=== PATIENT | female | born 1945 | race Caucasian/White ===

== ENCOUNTER 2017-04-18 10:58 | Day surgery (SDC) | payer MEDICARE ==
[2017-04-13 09:21] LABS: HEMATOCRIT 41.5 % (36.0-47.0); HGB HCT DIFFERENCE 0.5; MEAN CORPUSCULAR HEMOGLOBIN 29.7 pg (27.0-33.4); MEAN CORPUSCULAR HGB CONC 33.8 g/dL (32.0-36.0); MEAN CORPUSCULAR VOLUME 88 fl (80-97); RED BLOOD COUNT 4.73 10^6/uL (3.72-5.28); RED CELL DISTRIBUTION WIDTH 13.8 % (11.5-14.0); WHITE BLOOD COUNT 8.7 10^3/uL (4.0-10.5)
[2017-04-13 10:29] LABS: BLOOD UREA NITROGEN 11 mg/dL (7-20); CALCIUM 9.5 mg/dL (8.4-10.2); CREATININE RESULT 0.87 mg/dL (0.52-1.25); GLUCOSE 95 mg/dL (75-110)
[2017-04-13 11:23] LABS: ANION GAP 11 (5-19); CARBON DIOXIDE 32 mmol/L (22-30); CHLORIDE 99 mmol/L (98-107); POTASSIUM 4.2 mmol/L (3.6-5.0)
--- NOTE | 2017-04-13 12:19 | RADIOLOGY REPORT (SQ) ---
EXAM DESCRIPTION: CHEST PA/LATERAL COMPLETED DATE/TIME: 04/13/2017 9:41 am REASON FOR STUDY: PRE OP COMPARISON: 09/26/2013 EXAM PARAMETERS: NUMBER OF VIEWS: two views TECHNIQUE: Digital Frontal and Lateral radiographic views of the chest acquired. RADIATION DOSE: NA LIMITATIONS: none FINDINGS: LUNGS AND PLEURA: No infiltrate or effusion. A 4 cm mass is projected over the left upper lobe. This is not seen on the lateral view, however comments this may be associated with the chest wall. MEDIASTINUM AND HILAR STRUCTURES: No masses or contour abnormalities. HEART AND VASCULAR STRUCTURES: Heart normal size. No evidence for failure. BONES: No acute findings. HARDWARE: Sternotomy wires. OTHER: No other significant finding. IMPRESSION: 1. No acute infiltrates are present. 2. There is a 4 cm mass on the left. This is not appreciated on the lateral view, so this may be as sociated with the chest wall. TECHNICAL DOCUMENTATION: JOB ID: [id number] [employer]- All Rights Reserved
--- NOTE | 2017-04-14 11:52 | EKG REPORT ---
SEVERITY:- BORDERLINE ECG - SINUS RHYTHM PROBABLE LEFT ATRIAL ABNORMALITY : Confirmed by: Andrea Maravilla 14-Apr-2017 11:52:27
[~2017-04-18 10:58] MED LIST: CIPROFLOXACIN 400 MG/D5W RTU 400 MG/200 ML RTUPB IV PRN; LACTATED RINGERS 1000 ML IV PRN; LIDOCAINE 0.5% INJ-PF (5 MG/ML) 50 ML SDV SUBCUT PRN
[2017-04-18] MEDS ORDERED: MINERAL OIL (STERILE) 10 ML VIAL ONE (13:15)
[2017-04-18] MEDS ORDERED: THROMBIN (BOVINE) TOPICAL 5000 UNIT VIAL ONE (13:15)
[2017-04-18] MEDS ORDERED: LIDOCAINE 1%/EPINEPHRINE INJ 20 ML VIAL ONE (13:15)
[2017-04-18] MEDS ORDERED: LIDOCAINE 2% INJ-PF (20 MG/ML) 10 ML AMPUL ONE (13:31)
[2017-04-18] MEDS ORDERED: FENTANYL CITRATE INJ/PF 100 MCG/2 ML AMPUL ONE (13:31)
[2017-04-18] MEDS ORDERED: MIDAZOLAM 2 MG/2 ML INJ ONE (13:31)
[2017-04-18] MEDS ORDERED: PROPOFOL INJ 200 MG/20 ML VIAL IV ONE (13:32)
[2017-04-18] MEDS ORDERED: ACETAMINOPHEN 100 ML IV ONE (13:32)
--- NOTE | 2017-04-18 14:34 | PDOC DISCHARGE SUMMARY ---
Discharge Summary (SDC) - Discharge Final Diagnosis: left chest wall lesion Date of Surgery: 04/18/17 Discharge Date: 04/18/17 Condition: Stable Treatment or Instructions: Wound care: Leave pressure dressing intact for 48 hours. Pressure dressing includes: Tape and gauze beneath tape. You may shower in 48 hours after you remove pressure dressing. Leave skin glue intact, it will fall off on its own. You may take Toradol 10mg one tablet every six hours as needed for pain. Avoid excessive use of left arm. Follow up at [facility] in two weeks. Call clinic sooner if there are questions or concerns. [facility]: [phone] Prescriptions: Ketorolac Tromethamine [Toradol 10 mg Tablet] 10 mg PO Q6HP PRN #25 tablet PRN Reason: Referrals: ALICIA GOMEZ MD [Primary Care Provider] - Discharge Diet: As Tolerated Discharge Activity: No Lifting/Push/Pulling Report the Following to Your Physician Immediately: Fever over 101 Degrees, Unusual Bleeding, Redness, Swelling, Warmth, Drainage-Foul Smelling
--- NOTE | 2017-04-18 14:38 | Operative Report ---
Operative Report DATE OF SURGERY: 04/18/17 PREOPERATIVE DIAGNOSIS: Large left chest wall lesion POSTOPERATIVE DIAGNOSIS: Name OPERATION: Complete excision of left chest wall mass SURGEON: ALEJANDRA ESTRADA 1ST PROMOTIONS INTERN: SHAHRAM WEN ANESTHESIA: LMAC TISSUE REMOVED OR ALTERED: Soft tissue mass COMPLICATIONS: None ESTIMATED BLOOD LOSS: Scant INTRAOPERATIVE FINDINGS: See below PROCEDURE: The patient was seen in the preop holding area of the left subclavian chest wall lesion was marked. The patient was then taken to the main operating room where LMAC anesthesia was induced. The left subclavian area including the skin lesion was prepped and draped sterile fashion Surgical plan surgical timeout conducted. The lesion was oriented in a diagonal fashion. We commenced by anesthetized and subcutaneous tissue with 01% lidocaine plain. The lesion was excised in its entirety, by making a full-thickness elliptical excision approximately 4 cm wide by 8 cm long extending from the left subclavicular area laterally to the subclavicular area medially. The lesion was taken off in its entirety down to the subcutaneous tissue. We did not remove fascia or muscle. The lesion was sent unmarked to pathology for final analysis Lateral and medial flaps were raised and the wound closed in layers with 2-0 Vicryl 3-0 Vicryl benzoin and Steri-Strips. Sterile bulky dressing was applied. Patient tolerated the procedure well, taken to recovery in stable condition. The physician payroll assistant, Ms. Haddad, provided assistance during this case by: Assisting with retracting tissue, instillation of local anesthesia and closure of skin incisions.
[2017-04-18] MEDS ORDERED: DIPHENHYDRAMINE HCL 50 MG/ML VIAL IV PRN (15:14)
[2017-04-18] MEDS ORDERED: ONDANSETRON HCL INJ/PF 4 MG/2 ML SDV IV PRN (15:14)
[2017-04-18] MEDS ORDERED: FENTANYL CITRATE INJ/PF 100 MCG/2 ML AMPUL IV PRN ×3 (15:14)
[2017-04-18] MEDS ORDERED: PROMETHAZINE HCL INJ 25 MG/1 ML VIAL IV PRN ×2 (15:14)
[2017-04-18] MEDS ORDERED: MEPERIDINE HCL/PF INJ 25 MG/1 ML DISP.SYRIN IV PRN (15:14)
[2017-04-18 17:02] VITALS: BP 141/73
== END 2017-04-18 16:35 | disposition home or self-care (01) ==
LOC: OROUT 10:58
PROVIDERS: ATTEND Surgery
PROC: 0HB5XZZ Excision of Chest Skin, External Approach (ICD-10-PCS; 2017-04-18)
PROC: 0HQ5XZZ Repair Chest Skin, External Approach (ICD-10-PCS; principal; 2017-04-18 13:00)
DX: C44.529 Squamous cell carcinoma of skin of other part of trunk (principal); E05.90 Thyrotoxicosis, unspecified without thyrotoxic crisis or storm; I10 Essential (primary) hypertension; F17.210 Nicotine dependence, cigarettes, uncomplicated; Z79.82 Long term (current) use of aspirin; Z79.899 Other long term (current) drug therapy; Z85.3 Personal history of malignant neoplasm of breast; Z88.5 Allergy status to narcotic agent; Z88.0 Allergy status to penicillin; Z88.8 Allergy status to other drugs, medicaments and biological substances
CPT/HCPCS: 93005; 36415 ×2; 84132; 85027; 80048; 88307 ×2; 71020; 93010; 11606; 12035; J2250; J3010; J3490 ×2; J2704; J0744; J0131; 400

== ENCOUNTER → 2017-07-11 | Outpatient (CLI) | payer MEDICARE ==
--- NOTE | 2017-07-11 16:12 | RADIOLOGY REPORT (SQ) ---
EXAM DESCRIPTION: CAROTID DOPPLER COMPLETED DATE/TIME: 07/11/2017 3:47 pm REASON FOR STUDY: BRUIT R09.89 OTH SYMPTOMS AND SIGNS INVOLVING THE CIRC AND RESP SY COMPARISON: None. TECHNIQUE: Grayscale ultrasound, Doppler velocity and spectra, and color Doppler images acquired of the extra-cranial carotid and vertebral arteries. Images stored on PACS. LIMITATIONS: None. FINDINGS: RIGHT CAROTID CCA Velocities: Within normal limits. ICA Velocities Peak systolic 0.83 m/s. End diastolic 0.2 7 m/s. Proximal ICA/CCA peak systolic ratio 1.0. Spectra normal. No significant plaque. LEFT CAROTID CCA Velocities: Within normal limits. ICA Velocities Peak systolic 0.86 m/s. End diastolic 0.30 m/s. Proximal ICA/CCA peak systolic ratio 0.9. Spectra normal. No significant plaque. VERTEBRAL ARTERIES: Antegrade flow. Normal waveforms. SUBCLAVIAN ARTERIES: No finding. OTHER: No other significant finding. IMPRESSION: NO HEMODYNAMICALLY SIGNIFICANT STENOSIS. COMMENT: Quality ID #195: Velocity criteria are extrapolated from the diameter data as defined by t he Society of Radiologists in Ultrasound Consensus Conference. Radiology 2003: 229; 340-346. TECHNICAL DOCUMENTATION: JOB ID: [id number] [employer]- All Rights Reserved
== END ==
LOC: SP 14:00
PROVIDERS: ATTEND Family Medicine
DX: R09.89 Other specified symptoms and signs involving the circulatory and respiratory systems (principal)
CPT/HCPCS: 93880

== ENCOUNTER → 2019-02-25 | Outpatient (CLI) | payer MEDICARE ==
--- NOTE | 2019-02-25 15:35 | RADIOLOGY REPORT (SQ) ---
EXAM DESCRIPTION: CAROTID DOPPLER COMPLETED DATE/TIME: 02/25/2019 2:49 pm REASON FOR STUDY: BRUIT R09.89 OTH SYMPTOMS AND SIGNS INVOLVING THE CIRC AND RESP SY E05.90 THYROT OXICOSIS, UNSP WITHOUT THYROTOXIC CRISIS OR STO COMPARISON: 07/11/2017 TECHNIQUE: Grayscale ultrasound, Doppler velocity and spectra, and color Doppler images acquired of the extra-cranial carotid and vertebral arteries. Images stored on PACS. LIMITATIONS: None. FINDINGS: RIGHT CAROTID CCA Velocities: Within normal limits. ICA Velocities Peak systolic 106 cm/s. End diastolic 32 cm/s. Proximal ICA/CCA peak systolic ratio 1.14. The small amount of plaque in the common carotid and external carotid. LEFT CAROTID CCA Velocities: Within normal limits. ICA Velocities Peak systolic 204 cm/s. End diastolic 59 cm/s. Proximal ICA/CCA peak systolic ratio 2.43. There is plaque in the ICA. 50 to 69 percent stenosis. VERTEBRAL ARTERIES: Antegrade flow. Normal waveforms. SUBCLAVIAN ARTERIES: No finding. OTHER: No other significant finding. IMPRESSION: Atherosclerotic changes with 50 to 69% stenosis of the left ICA and less than 50% stenos is on the right. COMMENT: Quality ID #195: Velocity criteria are extrapolated from the diameter data as defined by t he Society of Radiologists in Ultrasound Consensus Conference. Radiology 2003: 229; 340-346. TECHNICAL DOCUMENTATION: JOB ID: [id number] [employer] All Rights Reserved Reading location - IP/workstation name: [email or web address]
--- NOTE | 2019-02-25 15:45 | RADIOLOGY REPORT (SQ) ---
EXAM DESCRIPTION: U/S THYROID/SFT TISS HD NECK COMPLETED DATE/TIME: 02/25/2019 3:15 pm REASON FOR STUDY: E05.90 THYROTOXICOSIS, UNSP WITHOUT THYROTOXIC CRISIS OR STORM R09.89 OTH SYMPTOM S AND SIGNS INVOLVING THE CIRC AND RESP SY E05.90 THYROTOXICOSIS, UNSP WITHOUT THYROTOXIC CRISIS OR STO COMPARISON: None. TECHNIQUE: Dynamic and static polanco-scale images acquired of the thyroid gland. Selected additional c olor/power Doppler images recorded. All images stored to PACS. LIMITATIONS: None. FINDINGS: RIGHT LOBE: The right lobe measures 5.0 x 1.6 x 2.7 cm. The gland is heterogeneous in ech otexture. There is a 1.4 x 1.3 x 1.0 cm heterogeneous nodule. This is spongiform in configuration. LEFT LOBE: The left lobe measures 4.3 x 1.5 x 2.9 cm. The gland is heterogeneous. There is a 6 x 4 x 6 mm small echogenic focus. Possibly calcification. ISTHMUS: The isthmus is measured 3 mm. There is heterogeneous echotexture. There is a focal 6 x 5 x 4 mm solid hypoechoic nodule. OTHER: No other significant finding. IMPRESSION: 1. Heterogeneous echotexture throughout the thyroid gland. 2. 1.4 x 1.3 x 1.0 cm spongiform nodule in the right lobe of the thyroid gland. This is TI-RAD 1 le avery. This is consistent with benign process. 3. 6.0 x 5.0 x 4.0 mm hypoechoic nodule in the isthmus. This is a TI-RAD 4 lesion. Continued surve illance is recommended. TECHNICAL DOCUMENTATION: JOB ID: [id number] [employer]- All Rights Reserved Reading location - IP/workstation name: [email or web address]
== END ==
LOC: RAD 13:52
PROVIDERS: ATTEND Nurse Practitioner Primary Care
DX: E05.90 Thyrotoxicosis, unspecified without thyrotoxic crisis or storm (principal); R09.89 Other specified symptoms and signs involving the circulatory and respiratory systems
CPT/HCPCS: 76536; 93880